=== PATIENT | male | born 1940 | race Caucasian/White ===

== ENCOUNTER → 2024-06-22 14:59 | Outpatient (REF) | payer MEDICARE, SELFPAY | LOC: HWRAD 14:59 | PROVIDERS: ATTENDING PHYSICIAN Internal Medicine | DX: M54.2 Cervicalgia (principal) | CPT/HCPCS: 76536 ==

== ENCOUNTER → 2024-08-08 09:13 | Outpatient (REF) | payer MEDICARE, SELFPAY ==
[2024-08-08 10:54] LABS: Hemoglobin 14.3 g/dL (13.0-18.0); Mean Corp Hgb Conc. 32.5 g/dL (33.0-37.0); Mean Corpuscular Hgb 29.7 pg (27.0-31.0); Mean Corpuscular Volume 91.3 fL (80.0-94.0); Mean Platelet Volume 10.5 fL (7.4-10.4); Platelet Count 238 10^3/uL (130-400); Red Blood Cell Count 4.82 10^6/uL (4.70-6.10); Red Cell Dist. Width 13.2 % (11.5-14.5); White Blood Cell Count 5.2 10^3/uL (4.8-10.8)
[2024-08-08 11:33] LABS: Blood Urea Nitrogen 31 mg/dl (9-20); Calcium 9.5 mg/dl (8.4-10.2); Carbon Dioxide 28 mmol/L (22-30); Chloride 101 mmol/L (98-107); Glucose 100 mg/dl (70-99); Potassium 4.9 mmol/L (3.5-5.1); Sodium 138 mmol/L (135-145); eGFR > 60.00
== END ==
LOC: SDSPAT 09:13
PROVIDERS: ATTENDING PHYSICIAN Surgery; FAMILY PHYSICIAN Internal Medicine
DX: Z01.818 Encounter for other preprocedural examination (principal)
CPT/HCPCS: 36415; 80048; 85027; 93005

== ENCOUNTER 2024-08-24 06:11 | Day surgery (SDC) | payer MEDICARE, SELFPAY ==
[2024-08-08 13:59] VITALS: BMI 28.7
[2024-08-24] VITALS (9 sets, daily range): BP systolic 129–154; BP diastolic 69–84; BMI 28.7
[2024-08-24] MEDS: NORMOSOL-R/PLASMALYTE-A 1000 IV (07:00)
[2024-08-24] MEDS: TYLENOL 1000 MG PO (07:00)
[2024-08-24] MEDS: ZOFRAN 4 MG IV (09:20)
[2024-08-24] MEDS: DILAUDID 0.25 MG IV (09:20)
[2024-08-24] MEDS: ROXICODONE 5 MG PO (12:07)
== END 2024-08-24 12:14 | disposition home or self-care (01) ==
LOC: SDS 06:11
PROVIDERS: ATTENDING PHYSICIAN Surgery; FAMILY PHYSICIAN Internal Medicine
DX: K40.90 Unilateral inguinal hernia, without obstruction or gangrene, not specified as recurrent (principal)
CPT/HCPCS: 49650; C1781

== ENCOUNTER → 2024-10-20 09:23 | Outpatient (REF) | payer MEDICARE, SELFPAY | LOC: HWRAD 09:23 | PROVIDERS: ATTENDING PHYSICIAN Physician Assistant; FAMILY PHYSICIAN Internal Medicine | DX: K82.4 Cholesterolosis of gallbladder (principal) | CPT/HCPCS: 76700 ==

== ENCOUNTER → 2024-12-13 11:18 | Outpatient (REF) | payer MEDICARE, SELFPAY | LOC: RCS 11:18 | PROVIDERS: ATTENDING PHYSICIAN Internal Medicine Cardiovascular Disease; FAMILY PHYSICIAN Internal Medicine | DX: R06.09 Other forms of dyspnea (principal); I10 Essential (primary) hypertension | CPT/HCPCS: 78452; 93017; A9500; J2785 ==

== ENCOUNTER → 2024-12-15 10:00 | Outpatient (REF) | payer MEDICARE, SELFPAY | LOC: RCS 10:00 | PROVIDERS: ATTENDING PHYSICIAN Internal Medicine Cardiovascular Disease; FAMILY PHYSICIAN Internal Medicine | DX: I10 Essential (primary) hypertension (principal) | CPT/HCPCS: 93306 ==